=== PATIENT | female | born 1995 | race Caucasian/White ===

== ENCOUNTER → 2017-11-03 16:34 | Outpatient (CLI) | payer MEDICAID, SELFPAY | PROVIDERS: Family Provider Family Medicine; PCP Family Medicine; Visit Provider Otolaryngology Otolaryngology/Facial Plastic Surgery | DX: J03.90 Acute tonsillitis, unspecified (principal) | CPT/HCPCS: 87070 ==

== ENCOUNTER 2019-06-17 12:51 | Inpatient (IN) | payer MEDICAID, SELFPAY ==
[2019-06-17] VITALS (31 sets, daily range): BP systolic 111–181; BP diastolic 61–104; PULSE 77–154; RESP 16; TEMP 35.8–36.6; O2SAT 79–100; BMI 30.9
--- NOTE | 2019-06-17 13:03 | PCM.HP.OB ---
- Problem List (1) Active labor at term Status: Acute (2) History of pre-eclampsia Status: Acute (3) SROM (spontaneous rupture of membranes) Status: Acute History Date of Admission: 06/17/19 Final LAURA: 06/11/19 Final LAURA Source: US <20 weeks Gestational age: 40 Weeks and 6 Days History of this : This is a 23 year-old, G [3], P [2002], at 40w6d gestational age. Presented to labor and delivery with contractions that started at 0900 this am. Upon arrival, SROM prior to getting on the unit for large amount of clear fluid at 1230. Nursing exam revealed 7cm dilation and in active labor, admission to labor and delivery. Offers no complaints today. complicated by history of preeclampsia with severe features in first and mild preeclampsia with second , none with this . History of vacuum extraction with both previous deliveries. Positive urine drug screen in beginning of and repeat screen negative. Anemia in . Allergies amoxicillin [Amoxicillin] Allergy (Verified 06/17/19 13:01) Hives cefazolin sodium [From Ancef] Allergy (Verified 06/17/19 13:01) Hives loracarbef [From Lorabid] Allergy (Verified 06/17/19 13:01) Hives Penicillins Allergy (Verified 06/17/19 13:01) Hives Home Medications: Home Medications Aspirin [Aspir 81] 81 mg PO DAILY 06/17/19 Ferrous Sulfate [Iron] 325 mg PO DAILY 06/17/19 Vits [Prenatabs FA] 1 tab PO DAILY 06/17/19 Smoking Status: Never smoker Alcohol: None Substance Use Type: Marijuana - positive at new OB visit 12/27/18, repeat screen negative 04/23/19, denies any further use. Number of Fetus(es): 1 NST - FHR Rate Baby A Baseline: 150 Variability:: Moderate Accelerations:: 15 x 15 Decelerations:: None NST Reactive:: Yes FHR Category:: Category I Uterine Activity:: Every 2-3 minutes, strong History Past Pregnancies: Past Pregnancies Delivery Date Name GA/ Weeks Outcome Route Wt Sex Labor Length Anesthesia Delivery Location Provider FOB Labs: GBS negative RPR negative Rubella Immune HBsAG negative HIV negative A positive GC/CT negative Urine drug screen positive cannabinoids on 12/27/18, repeat drug screen negative on 04/23/19 Expected Delivery Method: Spontaneous Vaginal Review of Systems Constitutional: Denies: Anorexia, Fever Eyes: Denies: Blurred vision, Vision Change HEENT: Denies: Head Aches, Sinus Congestion, Sinus Drainage Cardiovascular: Denies: Chest Pain, Palpitations Respiratory: Denies: Cough, Shortness of breath at rest, Sputum production Gastrointestinal: Reports: Abdominal Pain - contractions Genitourinary: Denies: Dysuria Neurological: Denies: Numbness, Tingling, Focal weakness Psychiatric: Denies: Anxiety, Depression, Homicidal Ideations, Suicidal Ideations Physical Exam Vitals: Vital Signs Pulse BP 107 H 146/104 H 06/17/19 13:01 06/17/19 13:01 General: Alert, Oriented x3, Cooperative HEENT: Atraumatic, Normocephalic Cardiovascular: Regular rate, Regular Rhythm, No murmurs Lungs: Clear to auscultation, Normal air movement, No rhonchi, No wheeze Abdomen: Soft, Gravid Extremities:: No edema Neurological: Deep Tendon Reflexes 2+/4 and Symmetrical. 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 A:Active Labor SROM Category 1 FHT P: 1) Admit to L&D 2) Routine labs. IV LR bolus for epidural 3) Patient requesting epidural for pain management, unsure if she will be able to get this, may use nitrous oxide 4) A positive. GBS negative 5) Consult patient financial services specialist, history of marijuana use 6) notified of patient in labor and status. Collaborative physician. 7)Declines LARC
[2019-06-17] MEDS: Lactated Ringers 500 ML 999 ML IV (13:05)
[2019-06-17 13:19] LABS: Absolute Lymphocyte Count 1.38 X10^3/uL (0.83-4.51); Basophil# 0.02 X10^3/uL; Basophil% 0.3 % (0-1); Eosinophil# 0.03 X10^3/uL; Eosinophils% 0.4 % (0-5); Hematocrit 35.9 % (37-47); Hemoglobin 11.9 g/dL (12.0-15.0); Lymphocyte # 1.38 X10^3/ul (4.0); Lymphocyte % 17.5 % (19-41); Mean Corp Hgb Conc 33.1 g/dL (32-36); Mean Corpuscular Hgb 26.8 pg (27.0-32.0); Mean Corpuscular Volume 80.9 fL (81-99); Mean Platelet Vol. 12.2 fl (6.2-12.0); Monocyte# 0.41 X10^3/uL; Monocyte% 5.2 % (0-10); NRBC Flagged by Analyzer 0 % (0-5); Neutrophil # 6.02 X10^3/uL (2.7-7.7); Neutrophil % 76.2 % (47-70); Platelet Count 152 K/mm3 (150-450); RBC Distribution Width CV 13.3 % (11.6-14.6); Red Blood Count 4.44 M/mm3 (4.2-5.4); White Blood Count 7.9 K/mm3 (4.4-11.0)
[2019-06-17 13:34] LABS: AST(SGOT) 21 U/L (15-37); Alanine Aminotransfer ALT/SGPT 18 U/L (13-56); Creatinine, Serum 0.65 mg/dL (0.55-1.02); EST Glomerular Filtration Rate 119 mL/min (>60); Est Glom Filt Rate - Afr Amer 144 mL/min (>60); Estimated Creatinine Clearance 121.13 ml/min; Uric Acid 4.1 mg/dL (2.6-6.0)
[2019-06-17] MEDS: Lactated Ringers 1,000 ML 50 ML IV (13:36)
[2019-06-17 13:48] LABS: Prothrombin Time (Protime)PT. 12.9 SECONDS (11.7-14.9)
[2019-06-17 13:49] LABS: Partial Thromboplast Time 27.8 Seconds (24.1-36.2)
[2019-06-17] MEDS: fentaNYL-bupivacaine (epidural) 100 ML BAG EPIDURAL (13:51)
[2019-06-17] MEDS: Oxytocin 30 units/NS 500 ml 30 UNITS/500 ML IV.SOLN 334 UNITS IV (14:46)
--- NOTE | 2019-06-17 15:16 | PCM.OPRPT ---
Problem List (1) Active labor at term Status: Acute (2) History of pre-eclampsia Status: Acute (3) SROM (spontaneous rupture of membranes) Status: Acute (4) Vaginal delivery Status: Acute (5) First degree perineal laceration Status: Acute Vaginal Delivery Maternal Presentation: Active Labor, Spontaneous Rupture of Membranes Amniotic Membrane Rupture Type: Spontaneous Amniotic Fluid Description: Clear Final LAURA: 06/11/19 Gestational age: 40 Weeks and 6 Days Date of Procedure: 06/17/19 Pre-Operative Diagnosis: Active Labor Post-Operative Diagnosis: Surgery/ Procedure Performed: Spontaneous Vaginal Delivery Type of Anesthesia: Epidural Description of Procedure: Epidural placed and began to feel increased pelvic pressure and found to be complete dilation and +1 station. of viable female infant over 1st degree perineal laceration. APGARS 8,9. head delivered with body forthcoming. Placed on maternal abdomen immediately skin to skin, strong cry. Mouth and nares suctioned for secretions. Pitocin started for active 3rd stage management. Cord clamped and cut by FOB after pulsations ceased. Placenta delivered via ledy with maternal effort, intact 3 vessel cord. Perineum inspected and revealed 1st degree perineal laceration repaired under epidural analgesia with 3.0 Rapide. Well approximated and hemostasis achieved. Fundus firm. Vaginal sweep completed. Sponge and instrument count correct. Mom and baby stable. Family boding well. Planning to bottle feed. notified of patient status. Presentation: Vertex Placental Delivery Description: Spontaneous Placenta Disposition: [facility] Cord Vessel Description: 3 Vessels Cord Entanglement: None Estimated Blood Loss: 200 ml Infant A gender: Female (1 minute): 8 (5 minute): 9 Episiotomy Description: None Laceration: Perineal Extension/lac, 1st degree Medications given after delivery: IV Pitocin
[2019-06-17 19:21] LABS: Amphetamine Urine VISTA NEGATIVE (<1000 ng/mL); Barbiturate Urine VISTA NEGATIVE (< 200 ng/mL); Benzodiazepine Urine VISTA NEGATIVE (< 200 ng/mL); Cocaine Urine VISTA NEGATIVE (< 300 ng/mL); Ecstacy Urine VISTA NEGATIVE (< 500 ng/mL); Methadone Urine VISTA NEGATIVE (< 300 ng/mL); PCP Urine VISTA NEGATIVE (< 25 ng/mL); THC Urine VISTA NEGATIVE (< 50 ng/mL); Vista UDS pH Range 7
[2019-06-18] MEDS: Acetaminophen 500 MG Tablet 1000 MG PO (02:01)
[2019-06-18 03:41] VITALS: BP 128/73; PULSE 91; RESP 16; TEMP 36.7
[2019-06-18] MEDS: Ibuprofen 600 MG Tablet PO (06:41)
[2019-06-18 08:46] VITALS: BP 115/64; PULSE 74; RESP 16; TEMP 36.2; O2SAT 96
--- NOTE | 2019-06-18 08:53 | PN.OBGYN_ITS ---
Patient Problems: Active and Suspected Problems Active labor at term (Acute) History of pre-eclampsia (Acute) SROM (spontaneous rupture of membranes) (Acute) Vaginal delivery (Acute) First degree perineal laceration (Acute) Subjective: Patient doing well. Denies headache, vision changes, right upper quadrant pain. She denies lightheadedness, dizziness, chest pain, shortness of breath, leg pain. She is ambulating and voiding without difficulty. She is tolerating regular diet without nausea or vomiting. Lochia normal. - Physical Exam Vitals/I&O's: Vital Signs Temp Pulse Resp BP Pulse Ox 97.1 F L 74 16 115/64 96 06/18/19 08:46 06/18/19 08:46 06/18/19 08:46 06/18/19 08:46 06/18/19 08:46 Oxygen Delivery Method Room Air Weight: 186 lb 4.65 oz Body Mass Index (BMI) 30.9 Intake and Output for Last 24 Hours 06/16/19 06/17/19 06/18/19 22:59 23:59 23:59 Intake Total Output Total Balance General: Alert, No apparent distress HEENT: Atraumatic Abdomen: Soft, Non Tender, - - FF@U Extremities: No edema, No Calf Tenderness Skin: No rashes Neurological: Neuro grossly intact Psych/Mental Status: Normal Affect, Appropriate Laboratory Results 06/17/19 13:05: WBC 7.9, RBC 4.44, Hgb 11.9 L, Hct 35.9 L, MCV 80.9 L, MCH 26.8 L, MCHC 33.1, RDW Std Deviation 39.0, RDW Coeff of Ramiro 13.3, Plt Count 152, MPV 12.2 H, Immature Gran % (Auto) 0.400, Neut % (Auto) 76.2 H, Lymph % (Auto) 17.5 L, [place] % (Auto) 5.2, Eos % (Auto) 0.4, Baso % (Auto) 0.3, Absolute Neuts (auto) 6.0, Absolute Lymphs (auto) 1.38, Nucleated RBC % 0 06/17/19 13:05: Blood Type A POSITIVE, Antibody Screen NEGATIVE 06/17/19 13:05: PT 12.9, INR 1.0, APTT 27.8 06/17/19 13:05: Creatinine 0.65, Estim Creat Clear Calc 121.13, Est GFR (MDRD) Af Amer 144, Est GFR (MDRD) Non-Af 119, Uric Acid 4.1, AST 21, ALT 18 06/17/19 16:35: Urine Opiates Screen NEGATIVE, Urine Methadone Screen NEGATIVE, Ur Barbiturates Screen NEGATIVE, Ur Phencyclidine Scrn NEGATIVE, Ur Amphetamines Screen NEGATIVE, U Methamphetamin-MDMA NEGATIVE, U Benzodiazepines Scrn NEGATIVE, Urine Cocaine Screen NEGATIVE, U Cannabinoids Screen NEGATIVE, Ur Drug Screen Comment Current Medications Acetaminophen (Tylenol) 1,000 mg PO Q8H PRN PRN PRN Reason: Pain Score 1-3 Last Admin: 06/18/19 02:01 Dose: 1,000 mg Documented by: Bisacodyl (Dulcolax) 10 mg RECTAL UD PRN PRN Reason: If no BM Dibucaine (Dibucaine) 1 applic TOPICAL TID PRN PRN; Protocol PRN Reason: Discomfort Hydrocortisone (Hytone) 1 applic TOPICAL TID PRN PRN; Protocol PRN Reason: Discomfort Ibuprofen (Motrin) 600 mg PO Q6H PRN PRN PRN Reason: Pain Score 1-3 Last Admin: 06/18/19 06:41 Dose: 600 mg Documented by: Methylergonovine Maleate (Methergine) 0.2 mg IM X1 PRN PRN Reason: Excess bleeding/uterine atony Ondansetron HCl (Zofran) 4 mg IV Q4H PRN PRN PRN Reason: Nausea Senna/Docusate Sodium (Senokot-S, Sylvia-Colace) 1 - 2 tablet PO DAILY PRN PRN PRN Reason: Constipation Simethicone (Mylicon) 80 mg PO PCHS PRN PRN Reason: Indigestion/Stomach pain Sodium Chloride () 5 - 15 ml IV UD PRN PRN Reason: SALINE FLUSH Medical Necessity - Tobacco Use Smoking Status: Never smoker Assessment/Plan All Active Problems Active labor at term (Acute) History of pre-eclampsia (Acute) SROM (spontaneous rupture of membranes) (Acute) Vaginal delivery (Acute) First degree perineal laceration (Acute) Preeclampsia (Acute) Patient is day 1 from a vaginal delivery. She desires to go home today. Discharge instructions reviewed and instructed her to call with any signs or symptoms of preeclampsia given her history of preeclampsia. To follow- up in 1 week and then 6 weeks in the office.
--- NOTE | 2019-06-18 08:55 | DCINST_ITS ---
Discharge Diet: No Restrictions Discharge Activity: May Shower, May Take a Tub Bath May resume sexual activity in: 6 weeks Weight Bearing Status: Weight bearing as tolerated Lifting Restrictions: None Call your doctor if you observe: Fever of 101 or Higher, Inability to urinate, Inability to have a bowel movement, Using more than one pad per hour, Shortness of breath, Dizziness, Chest pain, Increased palpitations (irregular heartbeat), Calf discomfort, Uncontrolled pain Cleanse incision/area with: Soap & Water Additional Instructions: If you experience any of the following, contact your healthcare provider. * Bleeding that soaks a pad every hour for 2 hours * Fever 100.4 or higher * Unrelieved incision or abdominal pain * Swelling, redness, discharge or bleeding from your incision or episiotomy site * Your incision begins to separate * Problems urinating (including inability to urinate or burning while urinating). * Visual changes * Severe headache * Flu-like symptoms * Pain or redness in one of both of your breasts * Pain, warmth, tenderness or swelling in your legs, especially the calf area * Frequent nausea and vomiting * Symptoms of depression or anxiety If you experience any of the following, call 911 or go to the nearest Emergency Room. * Chest pain * Problems breathing * Seizure activity * Partial or complete paralysis of a body part, slurred speech, weakness or drooping of the face, or a sudden inability to walk or hold your balance Allergies/Adverse Reactions: Allergies amoxicillin [Amoxicillin] Allergy (Verified 06/17/19 13:01) Hives cefazolin sodium [From Ancef] Allergy (Verified 06/17/19 13:01) Hives loracarbef [From Lorabid] Allergy (Verified 06/17/19 13:01) Hives Penicillins Allergy (Verified 06/17/19 13:01) Hives Medications to take at Discharge Aspirin [Aspir 81] 81 mg PO DAILY 06/17/19 Ferrous Sulfate [Iron] 325 mg PO DAILY 06/17/19 Vits [Prenatabs FA] 1 tab PO DAILY 06/17/19 When: 1 week and 6 weeks Primary Care Physician: Care Physician,No Primary [Primary Care Provider] - Test Results: Test results from this visit will be discussed in further detail at your follow- up appointment, if applicable.
[2019-06-18 12:12] VITALS: BP 116/59; PULSE 84; RESP 16; TEMP 36.3; O2SAT 96
--- NOTE | 2019-06-18 16:52 | CASEMGMT ---
Social Work Assessment Labor and Delivery Unit Patient Address: [facility] [address] [place] [id number] Phone number: [phone] Date of Referral: 06.17.2019 Time of Referral: 1706 Referred By: Sole Rain CNM Date of Intervention: 06.18.2019 Time of Intervention: 1430 Reason for Referral: Maternal marijuana use History obtained from: medical records and mother of baby (MOB) Yelitza Rubi Household composition: MOB, father of baby (FOB) Alphonso Rubi, and their older children. Patient's parent/guardian status: MOB is age 23 to FOB who is age 23, since 04.25.2014. MOB denies any form of abuse or safety issues with FOB. MOB and FOB now have 3 children together: Madhuri, born on 05.12.2014; Manolo, born on 05.25.2015, and Marianne, born on 06.17.2019. Medical History: MARISA is G3, P2 to 3 after delivering Marianne. MOB?s care started later at 16 weeks gestation. MOB did attend regularly thereafter. MOB has history of Pre-eclampsia with prior pregnancies. Marianne was born weighing 8 pounds 2 ounces. ?s 8 and 9 at 1 and 5 minutes of life. Educational Status: MOB attended the [employer] and studied graphic design and photography. No reported issues with reading, writing or learning comprehension. Financial Status: MOB was working at a [employer] but plan to find a new job when maternity leave is over. FOB works as an insulator. MOB reports to be doing okay financially. Insurance: MOB is currently self-pay. Reports the children have Medicaid but MOB and FOB made too much money for themselves to have insurance. MOB reports was advised by the [facility] financial department to just wait on applying for Medicaid until the baby was born. MOB report intent to do so now. Infant Supplies: MOB reports to have needed supplies including pack-n-play, car seat, clothing, diapers, wipes, bottles and formula. Childcare/Caregiver(s): MOB Transportation: Denies issues. Programs/Agencies Involved: MOB has Medicaid for the older children. Reports plan to apply for Medicaid not that the baby is born. Plans to apply for WIC. Denies any other agency involvement. Children Services/Legal Issues: Denies legal issues. Denies past or present involvement with children services. Behavioral Health Issues: Mental Health History: Past record indicates MOB may have had some situational anxiety in the past. Denies any history of depression. Denies active anxiety issues. Denies any history of suicidal ideation. No report of any homicidal ideation history. No history of medications or counseling reported. Substance Use History: MOB denies use or abuse of alcohol, meth, cocaine, heroin, pills. MOB admits to marijuana use and report that quit in the first trimester. MOB reports she was in denial for a little bit about the so when was feeling sick use the smoke marijuana. MOB reports she quit after knowledge. Drug Screens: maternal screen positive at 16 weeks visit on 12.28.2019. Negative on 04.23.2019 and at delivery on 06.17.2019. Baby?s urine is negative, and meconium is pending. Family/Social Stressors: [place] with MOB in denial about it for a time. MOB reports once she took the test and saw that was did accept the . MOB reports to feel a connection to the baby now; no reported issues with bonding. Support Systems: MOB reports FOB is a good emotional support. MOB?s mother and FOB?s mother are both taking time off work to help MOB with transition home with baby and 2 other children. MOB reports to feel support system is adequate. Depression/Shaken Baby/Safe Sleeping: MOB able to give appropriate answers for shaken baby prevention. Reports to know what safe sleeping is. Educated to depression and anxiety importance of seeking out help and support as needed or indicated. ASSESSMENT: Met with MOB in the room, who was holding baby for the entirety of social work visit. MOB was calm and appropriate in handling of thee baby. FOB was sleeping on the couch and did not appear to wake up at all to participate in conversation. Handwrote a note to MOB abut abuse question as well as asking if okay to talk about any topic with FOB still in the room. MOB quiet, pleasant, held good eye contact. MOB reports to have all needed supplies and will have support from family at home going. MOB denies depressive or anxiety symptoms currently. Reports intent to remain free of marijuana in the period. MOB accepted [employer] applications, 800 number for the [place] Benefits? line for Medicaid. Accepted a [facility] resources packet and information on mood and anxiety disorders. Broached with MOB that should baby's meconium come back positive for substances then children seerivcces would be following up with MOB. Safe Plan of Care for related to substance use: MOB plans to abstain from substances. Should this intent ever change MOB would make sure substance is out of reach of the children, not use around the kids, and assure there is another adult to help care for the kids. PLAN: MOB and baby to home when ready for discharge. Monitor for meconium drug screen results. No other services requested or indicated. -JULIAN Rosales, ACCESS SERVICE REPRESENTATIVE
[2019-06-18 17:12] VITALS: BP 122/77; PULSE 88; RESP 16; TEMP 36.7; O2SAT 96
== END 2019-06-18 17:30 | disposition home or self-care (01) | DRG 807 ==
PROVIDERS: Admitting Provider Advanced Practice Midwife; Visit Provider Advanced Practice Midwife
DX: O99.02 Anemia complicating childbirth (principal); Z37.0 Single live birth; D64.9 Anemia, unspecified; O70.0 First degree perineal laceration during delivery; Z3A.40 40 weeks gestation of pregnancy
CPT/HCPCS: 59025; 59050; 80307; 82565; 84450; 84460; 84550; 85025; 85027; 85610; 85730; 86850; 86900; 86901; 99218; J7120; G0378